=== PATIENT | male | born 1955 ===

== ENCOUNTER 2023-12-04 12:11 | Outpatient (CLI) | payer OTHER, SELFPAY ==
--- NOTE | 2023-12-04 11:45 | DI.RAD_ITS ---
Exam(s) XR KNEE LT 3V AP,LAT,LISETTE EXAM: XR KNEE LT 3V AP,LAT,LISETTE CLINICAL HISTORY: left knee pain. TECHNIQUE: 2D digital imaging was performed of the left knee. Three images were obtained. AP, late ral and PA tunnel views were obtained. COMPARISON: CR TIBIA FIBULA 2 VIEWS from 09/15/2023 FINDINGS: BONES: No acute fracture is present. No bony destructive lesion is seen. There is an old curvilinear density again seen adjacent to the medial femoral condyle likely reflecting old injury. JOINTS: The knee is normally aligned. No joint effusion is seen. No loose body. SOFT TISSUE: Vascular calcifications are present. IMPRESSION: No acute abnormality. If there is concern for internal derangement, an MRI should be considered for further evaluation. DATA REPOSITORY: RADIATION DOSE DELIVERED:
== END 2023-12-04 12:12 | disposition home or self-care (01) ==
LOC: DIORS 12:11
PROVIDERS: Visit Provider Physician Assistant
DX: M25.562 Pain in left knee (principal)
CPT/HCPCS: 73562

== ENCOUNTER 2023-12-22 02:27 | Outpatient (CLI) | payer OTHER, SELFPAY ==
--- NOTE | 2023-12-22 07:36 | DI.MRI_ITS ---
Exam(s) MR LOWER JOINT LT WO EXAM: MR LOWER JOINT LT WO CLINICAL HISTORY: lt knee pain, ? bakers cyst or synovial cyst,M71.210,M71.22,[id number]. TECHNIQUE: Multiplanar multisequence MRI was performed. COMPARISON: CR XR KNEE LT 3V AP,LAT,LISETTE from 12/04/2023 FINDINGS: BONES: No acute fractures identified. Mild marrow edema seen in the subchondral bone in the medial t ibial plateau without evidence of a fracture. JOINTS: Mild chondromalacia is seen in the mid patellar cartilage with mild subchondral edema. There is a small amount of fluid in the joint space. TENDONS: Extensor mechanism: Unremarkable. Medial retinaculum: Unremarkable. Lateral retinaculum: Unremarkable. Popliteus: Unremarkable. MUSCLES: Unremarkable. MENISCI: There is a tear of the posterior horn of the medial meniscus. The lateral meniscus is unrem arkable. SOFT TISSUES: There is a small popliteal cyst. There is edema seen in the soft tissues posteriorly. There is a fluid collection associated with the semi tendinosis tendon. It begins above the level o f the knee joint. The tendon is intact. LIGAMENTS: Anterior Cruciate: Unremarkable. Posterior Cruciate: Unremarkable. Medial Collateral:Unremarkable. Lateral Collateral: Unremarkable. OTHER: IMPRESSION: 1. Tear of the posterior horn of the medial meniscus. 2. No evidence of a ligament tear. 3. Fluid collection associated with the semitendinosus tendon. Differential considerations include t enosynovitis, ganglion cyst or bursitis. The tendon is intact. DATA REPOSITORY:
== END 2023-12-22 02:47 ==
LOC: DI 02:31
PROVIDERS: Visit Provider Student in an Organized Health Care Education/Training Program
DX: M25.562 Pain in left knee (principal); M71.22 Synovial cyst of popliteal space [Baker], left knee; S83.242A Other tear of medial meniscus, current injury, left knee, initial encounter
CPT/HCPCS: 73721

== ENCOUNTER 2024-02-18 12:31 | Day surgery (SDC) | payer OTHER, SELFPAY ==
[2024-02-18] VITALS (22 sets, daily range): BP systolic 65–154; BP diastolic 40–99; PULSE 71–109; RESP 13–22; TEMP 36.4–36.7; O2SAT 93–99; BMI 28.0
[2024-02-18] MEDS: Lactated Ringers 1,000 ML 80 ML IV (14:00)
[2024-02-18] MEDS: Acetaminophen 500 MG TAB 1000 MG PO (14:23)
--- NOTE | 2024-02-18 14:24 | NUR.NOTE ---
Nursing Note:1423 Patient refused celebrex due to allergy - reports GI bleed.
--- NOTE | 2024-02-18 14:33 | PDOC.DSDIS_ITS ---
Date of service: 02/18/24 Time of Service: 14:33 Discharge Plan Disposition Patient Disposition: Home Condition: Good Discharge Details Reason For Visit: L knee arthroscopy Attending Provider: Chilo Fuentes Primary Care Provider: JULIA RUIZ Home Meds and New Rx's Prescriptions: New hydrocodone-acetaminophen 5-325 mg tablet 1 tab PO Q6H PRN (Reason: pain) Qty: 6 0RF acetaminophen 500 mg tablet 1,000 mg PO TID Qty: 90 0RF Continued alirocumab 150 mg/mL pen injector 300 mg subcut Q14D candesartan 16 mg tablet 16 mg PO DAILY clopidogrel 75 mg tablet 75 mg PO DAILY duloxetine 30 mg capsule,delayed release(DR/EC) 60 mg PO DAILY lamotrigine 200 mg tablet 200 mg PO BID metoprolol tartrate 50 mg tablet 50 mg PO BID primidone 50 mg tablet 50 mg PO .COMPLEX Rx Instructions: 50 mg orally EVERY MORNING AND 2 TABLETS at BEDTIME; spironolactone 25 mg tablet 25 mg PO DAILY tadalafil 5 mg tablet 5 mg PO DAILY thiamine HCl (vitamin B1) 100 mg tablet 100 mg PO DAILY naltrexone 50 mg tablet 50 mg PO DAILY nicotine 14 mg/24 hr patch 24 hour 1 patch transdermal DAILY paroxetine HCl 12.5 mg tablet extended release 24 hr 12.5 mg PO DAILY tamsulosin 0.4 mg capsule 0.4 mg PO DAILY Discharge Instructions Stand Alone Forms: [facility] Knee Arthroscopy Referrals: Chilo Fuentes MD [ [facility] STAFF PHYSICIAN] - Equipment/Supplies: Partial Weight Bearing Crutches Activity:: Activity as Tolerated Remove Dressings/Wound Care:: 72 hours Shower/Bathe:: 72 hours Diet:: As Tolerated Discharge Orders Discharge Orders: Discharge Order (Routine); Ordered 02/18/24 Ordered By: Fabiano Braun DS: Diagnosis Discharge Diagnosis (1) Tear of medial meniscus of left knee: Status: Acute
--- NOTE | 2024-02-18 14:47 | W.ANESPRE ---
General Info Date of Service Date Performed: 02/18/24 Height: 5 ft 10 in Weight: 88.5 kg Body Mass Index (BMI): 28.0 Surgical Procedure: Operation Date: 02/18/24 15:10 Proposed Procedure Side Surgeon p Knee Arthroscopy with Partial Medial Menisectomy Left Chilo Fuentes MD Pre-Op Diagnosis Post-Op Diagnosis (1) Synovial cyst of popliteal space [Koenig], left knee (2) Tear of medial meniscus of left knee Meds Allergies and Home Medications Allergies Allergy/AdvReac Type Severity Reaction Status Date / Time atorvastatin Allergy Unknown stomach Verified 02/18/24 14:16 bleeds celecoxib (From Celebrex) Allergy Unknown GI bleeds Verified 02/18/24 14:16 lisinopril Allergy Unknown Per pt. Verified 02/18/24 14:16 stats i get a blood line from my chin to my ear pravastatin Allergy Unknown stomach Verified 02/18/24 14:16 bleeds simvastatin Allergy Unknown stomach Verified 02/18/24 14:16 bleeds codeine AdvReac Unknown bleeding Verified 02/18/24 14:16 ulcers gabapentin AdvReac Unknown Per pt. Verified 02/18/24 14:16 states slips me right out attitude-locke, i go off t Home Medication ?Medication ?Instructions ?Recorded alirocumab 150 mg/mL subcutaneous 300 mg subcut Q14D 11/12/23 pen injector candesartan 16 mg tablet 16 mg PO DAILY 11/12/23 clopidogrel 75 mg tablet 75 mg PO DAILY 11/12/23 duloxetine 30 mg capsule,delayed 60 mg PO DAILY 11/12/23 release lamotrigine 200 mg tablet 200 mg PO BID 11/12/23 metoprolol tartrate 50 mg tablet 50 mg PO BID 11/12/23 naltrexone 50 mg tablet 50 mg PO DAILY 11/12/23 nicotine 14 mg/24 hr daily 1 patch transdermal DAILY 11/12/23 transdermal patch paroxetine HCl 12.5 mg 12.5 mg PO DAILY 11/12/23 tablet,extended release 24 hr primidone 50 mg tablet 50 mg PO .COMPLEX 11/12/23 spironolactone 25 mg tablet 25 mg PO DAILY 11/12/23 tadalafil 5 mg tablet 5 mg PO DAILY 11/12/23 tamsulosin 0.4 mg capsule 0.4 mg PO DAILY 11/12/23 thiamine HCl (vitamin B1) 100 mg 100 mg PO DAILY 11/12/23 tablet acetaminophen 500 mg tablet 1,000 mg (2 x 500 mg) PO TID #90 02/18/24 tabs hydrocodone 5 mg-acetaminophen 325 1 tab PO Q6H PRN pain #6 tabs 02/18/24 mg tablet Current Visit Medications: Current Medications Generic Name Dose Route Start Last Admin Trade Name Freq PRN Reason Stop Dose Admin Acetaminophen 1,000 mg 02/18/24 06:00 02/18/24 14:23 Acetaminophen 500 Mg Tab PO 02/18/24 23:59 1,000 mg PREOP MIRI Administration Acetaminophen 650 mg 02/18/24 14:31 Acetaminophen 325 Mg Tab PO 03/19/24 14:30 Q4H PRN PRN Hydrocodone Bitart/Acetaminophen 0 tab 02/18/24 14:31 Hydrocodone 5/Acetaminophen 325 Tab PO 03/19/24 14:30 Q3H PRN PRN Pain Celecoxib 400 mg 02/18/24 06:00 Celecoxib 200 Mg Cap PO 02/18/24 23:59 PREOP MIRI Ringer's Solution 1,000 mls @ 80 mls/hr 02/18/24 06:00 02/18/24 14:00 IV 02/18/24 23:59 80 mls/hr INFUSION MIRI Administration Cefazolin Sodium/Dextrose 2 gm in 50 mls @ 100 mls/hr 02/18/24 06:00 Ancef Duplex IVPB 02/18/24 23:59 PREOP MIRI Tranexamic Acid/Sodium Chloride 1,000 mg in 100 mls @ 600 mls/hr 02/18/24 06:00 IVPB 02/18/24 23:59 PREOP MIRI IV Miscellaneous Supplies 1 each 02/18/24 06:00 Iv Access IV 02/18/24 23:59 DIRECTED MIRI Sodium Chloride 0 ml 02/18/24 06:00 Normal Saline Flush 10 Ml Syr IV 02/18/24 23:59 PRN PRN Sodium Chloride 0 ml 02/18/24 06:00 Normal Saline 10 Ml Vial IJ 02/18/24 23:59 DIRECTED PRN Sterile Water 0 ml 02/18/24 06:00 Water,Injection,Sterile 10 Ml Vial IJ 02/18/24 23:59 DIRECTED PRN PFSH Active Problems Active Problems: Problem Status Onset Code Tear of medial meniscus of left knee Acute S83.242A Synovial cyst of popliteal space [Koenig], left knee Acute M71.22 Medical History Medical History Degenerative cervical spinal stenosis Rotator cuff tear Unable to control anger Emphysema lung History of traumatic brain injury Vitamin B12 deficiency Chronic hyponatremia Syncope Uses emotional support animal PTSD (post-traumatic stress disorder) Per pt. states do not touch his upper body, stand back off to side and call name first, hx of combative wake up and jump up Spondylosis of cervical region without myelopathy or radiculopathy Right hemiplegia CAD (coronary artery disease) Exertional angina Lumbar stenosis Chronic midline back pain AGUSTINA (obstructive sleep apnea) CVA (cerebral vascular accident) x3 (2004) Carotid stenosis Per pt. states US was done 2021 per pt. states he was told it was mild HLD (hyperlipidemia) HTN (hypertension) Medical History Comments:: Per pt. states do not touch his upper body, stand back off to side and call name first, hx of combative wake up and jump up Surgical History Surgical History H/O cardiac catheterization 2016 Tobacco Smoking/Tobacco Use Status: Current every day Tobacco Type: cigarettes Alcohol Alcohol Intake: current Alcohol intake frequency: a few times a week Substance Use Substance use: Never Substance use type: does not use Vital Signs and Lab Results Vital Signs Most Recent Vital Signs in EMR: Most Recent Vital Signs Temp Pulse Resp BP Pulse Ox 36.5 C 109 H 22 154/99 H 96 02/18/24 13:20 02/18/24 13:20 02/18/24 13:20 02/18/24 13:20 02/18/24 13:20 Lab Results Blood Type / Crossmatch: No Data to Display Complete Blood Count: No Data to Display Complete Metabolic Panel: No Data to Display Liver Function Panel: No Data to Display Coagulation Panel: No Data to Display Cardiac Panel: No Data to Display Arterial Blood Gas: No Data to Display Venous Blood Gas: No Data to Display Pancreas Panel: No Data to Display Thyroid Panel: No Data to Display Infectious Disease: No Data to Display Blood Cultures: No Data to Display Toxicology Panel: No Data to Display Anesthesia Assessment and Plan Anesthesia History Personal History: Other Family History: No Family History of Anesthesia Complications Exercise Tolerance Exercise Tolerance: Metabolic Equivalents>4 Pertinent Negatives Pertinent Negatives: No Symptoms of GERD Cardiac & Pulmonary Exam Cardiac Exam: Normal S1/S2 Heart Sounds Pulmonary Exam: Clear Bilateral Breath Sounds (Home Oxygen) Implantable Cardiac Device Does patient have a Pacemaker or an ICD?: No Airway Exam Known Difficult Airway: No Mallampati Class: 2 Mouth Opening: Normal (> 3cm) Thyromental Distance: Greater than 3 cm Facial Hair: Full [place] Neck Range of Motion: Full ROM Neck Circumference: Normal Teeth Condition: Normal Dentition ASA Classification ASA Score: ASA 3 Emergency Case?: No NPO Status NPO Status: NPO Clears >2 hours, Solids >8 hours Anesthesia Plan Resuscitation Status: Full Code Anesthesia Technique: General Anesthesia Airway Planned: LMA Monitors Used: Standard Monitors
--- NOTE | 2024-02-18 14:48 | W.PREOPHP ---
Assessment and Plan Assessment and plan (1) Tear of medial meniscus of left knee: Status: Acute (2) Synovial cyst of popliteal space [Koenig], left knee: Status: Acute Assessment and plan: Left knee arthroscopy with partial medial meniscectomy. Details of surgery were discussed with patient as well pertinent anatomy and risks including but not limited to risk of infection, blood clot, damage to soft tissue/blood vessels/nerves, bleeding and fracture in detail. All questions were answered. History of Present Illness History of Present Illness Chief Complaint: Left knee pain/swelling Narrative: Mohan comes in today for a left knee arthroscopy with partial medial meniscectomy as treatment for his persistent koenig's cyst of the left knee. Please see previous office note for a full history. Ultimately it was determined that the cause of the cyst is likely the medial meniscus tear and athrocopic intervention would take care of both symptoms. He is anxious proceed. Review of Systems Constitutional Constitutional: Denies fever(s) ENT Ears, Nose, Mouth, and Throat: Denies dizziness and Denies sore throat Cardiovascular Cardiovascular: Denies chest pain, Denies palpitations and Denies dyspnea Respiratory Respiratory: Denies cough and Denies dyspnea Gastrointestinal Gastrointestinal: Denies abdominal pain, Denies melena, Denies hematochezia, Denies diarrhea, Denies nausea and Denies vomiting Genitourinary Genitourinary: Denies hematuria and Denies dysuria Neurologic Neurologic: Denies dizziness Endocrine Endocrine: Denies palpitations PFSH All Active Problems Tear of medial meniscus of left knee (Acute) Synovial cyst of popliteal space [Koenig], left knee (Acute) Medical History Degenerative cervical spinal stenosis Rotator cuff tear Unable to control anger Emphysema lung History of traumatic brain injury Vitamin B12 deficiency Chronic hyponatremia Syncope Uses emotional support animal PTSD (post-traumatic stress disorder) Per pt. states do not touch his upper body, stand back off to side and call name first, hx of combative wake up and jump up Spondylosis of cervical region without myelopathy or radiculopathy Right hemiplegia CAD (coronary artery disease) Exertional angina Lumbar stenosis Chronic midline back pain AGUSTINA (obstructive sleep apnea) CVA (cerebral vascular accident) x3 (2004) Carotid stenosis Per pt. states US was done 2021 per pt. states he was told it was mild HLD (hyperlipidemia) HTN (hypertension) Surgical History H/O cardiac catheterization 2015 Social History Smoking/Tobacco Use Status: Current every day Tobacco Type: cigarettes Smoking risk assessment performed?: Yes Alcohol Intake: current Alcohol Intake frequency: a few times a week Drug use: Never Substance use type: does not use Housing: house Do you feel safe at home: Yes Do you feel safe in your relationship?: Yes Meds Allergies and Home Medications Allergies Allergy/AdvReac Type Severity Reaction Status Date / Time atorvastatin Allergy Unknown stomach Verified 02/18/24 14:16 bleeds celecoxib (From Celebrex) Allergy Unknown GI bleeds Verified 02/18/24 14:16 lisinopril Allergy Unknown Per pt. Verified 02/18/24 14:16 stats i get a blood line from my chin to my ear pravastatin Allergy Unknown stomach Verified 02/18/24 14:16 bleeds simvastatin Allergy Unknown stomach Verified 02/18/24 14:16 bleeds codeine AdvReac Unknown bleeding Verified 02/18/24 14:16 ulcers gabapentin AdvReac Unknown Per pt. Verified 02/18/24 14:16 states slips me right out attitude-locke, i go off t Home Medications ?Medication ?Instructions ?Recorded ?Confirmed ?Type alirocumab 150 mg/mL subcutaneous 300 mg subcut Q14D 11/12/23 02/18/24 History pen injector candesartan 16 mg tablet 16 mg PO DAILY 11/12/23 02/18/24 History clopidogrel 75 mg tablet 75 mg PO DAILY 11/12/23 02/18/24 History duloxetine 30 mg capsule,delayed 60 mg PO DAILY 11/12/23 02/18/24 History release lamotrigine 200 mg tablet 200 mg PO BID 11/12/23 02/18/24 History metoprolol tartrate 50 mg tablet 50 mg PO BID 11/12/23 02/18/24 History naltrexone 50 mg tablet 50 mg PO DAILY 11/12/23 02/18/24 History nicotine 14 mg/24 hr daily 1 patch transdermal DAILY 11/12/23 02/18/24 History transdermal patch paroxetine HCl 12.5 mg 12.5 mg PO DAILY 11/12/23 02/18/24 History tablet,extended release 24 hr primidone 50 mg tablet 50 mg PO .COMPLEX 11/12/23 02/18/24 History spironolactone 25 mg tablet 25 mg PO DAILY 11/12/23 02/18/24 History tadalafil 5 mg tablet 5 mg PO DAILY 11/12/23 02/18/24 History tamsulosin 0.4 mg capsule 0.4 mg PO DAILY 11/12/23 02/18/24 History thiamine HCl (vitamin B1) 100 mg 100 mg PO DAILY 11/12/23 02/18/24 History tablet acetaminophen 500 mg tablet 1,000 mg (2 x 500 mg) PO TID #90 02/18/24 Rx tabs hydrocodone 5 mg-acetaminophen 325 1 tab PO Q6H PRN pain #6 tabs 02/18/24 Rx mg tablet Exam Const General: cooperative, healthy appearing and no acute distress Orientation: alert and awake HENWY Head: normocephalic and atraumatic General nose exam: no nasal discharge Eyes Conjunctivae: conjunctivae normal Sclera: sclerae normal Resp Effort & Inspection: normal respiratory effort Auscultation: clear to auscultation bilaterally and no wheezes Cardio Rate: regular rate Rhythm: regular rhythm Heart Sounds: S1 normal, S2 normal and no murmurs Results Last Vital Signs Temp 97.7 F 02/18/24 13:20 Pulse 109 H 02/18/24 13:20 Resp 22 02/18/24 13:20 BP 154/99 H 02/18/24 13:20 Pulse Ox 96 02/18/24 13:20
[2024-02-18] MEDS: ceFAZolin 2 GM/50 ML BAG IVPB (15:45)
[2024-02-18] MEDS: TRANEXAMIC ACID/SOD. CHL. 1,000 MG/100 ML BAG 600 MG IVPB (15:49)
[2024-02-18] MEDS: EPINEPHrine 10 MG/10 ML ML (16:05)
[2024-02-18] MEDS: Bupivacaine 0.25% Pres-Free 30 ML VIAL (16:08)
--- NOTE | 2024-02-18 16:48 | W.ANESPOSTOP ---
Postoperative Evaluation Date, Time and Location Date Performed: 02/18/24 Time Performed: 16:49 Patient Location: PACU Vital Signs Most Recent Imported Vital Signs: Most Recent Vital Signs Temp Pulse Resp BP Pulse Ox 36.7 C 88 15 116/82 95 02/18/24 16:45 02/18/24 16:45 02/18/24 16:46 02/18/24 16:45 02/18/24 16:46 Pain Score Most Recent Pain Score: Most Recent Pain Score Pain Level 4 02/18/24 16:47 Assessment Mental Status: Awake (Alert & Oriented to Patient Baseline) Airway and Respiratory Function: Patent airway with normal (patient baseline) respiratory exam Cardiovascular Function: Hemodynamically Stable Hydration Status: Adequately Hydrated Nausea & Vomiting: No Nausea or Vomiting Pain: Pain is tolerable per patient Peripheral Nerve Block: Patient did not receive a nerve block
[2024-02-18] MEDS: HYDROcodone 5/Acetaminophen 325 TAB PO (17:06)
--- NOTE | 2024-02-18 21:30 | ROE_ITS ---
Date of service: 02/18/24 Time of Service: 15:30 Operative Note Operative Note DATE OF PROCEDURE: 02/18/24 PRE-OP DIAGNOSIS: Medial Meniscus Tear - left knee POST-OP DIAGNOSIS: same PROCEDURE: Arthroscopic partial medial menisectomy - left knee SURGEON: Chilo Fuentes ANESTHESIA TYPE: General LMA/ETT Refer to Anesthesia Record ESTIMATED BLOOD LOSS: 0 PATHOLOGY: none sent COMPLICATIONS: None Patient was transported to: PACU Patient's condition: stable Indications: I have seen Mohan in clinic for symptoms of a meniscus tear and a popliteal cyst. This was confirmed based on MRI and exam findings. Nonoperative measures were exhausted but disability and pain persisted. I discussed knee arthroscopy with meniscal intervention with the patient. I reviewed the risks of the procedure to include, but not limited to, bleeding, infection, pain, stiffness, damage to nerves or vessels, recurrence, blood clot. Despite these risks, the patient elected to proceed. Findings: A diagnostic arthroscopy was performed with the following findings: Suprapatellar Pouch: Moderate inflammatory change, No loose bodies Medial Compartment: Complex medial meniscal tear with loose and displaced fragments, Intact meniscal root although with some tearing at this level, There were Grade II/III areas of chondromalacia, No loose bodies Notch: ACL and PCL were intact Lateral Compartment: Fraying at the level of the root, Intact meniscal root, Focal area of Grade III chondromalacia in the central portion of the posterior lateral tibia with Grade I changes of the lateral femur, No loose bodies Patellofemoral Compartment: Noderate cartilage fraying, No apparent patellar maltracking Procedure Description: Mohan was greeted in the preoperative holding area where the correct side was identified and marked. The consent was reviewed with the patient and signed. The history and physical was updated. All questions were answered. He was taken back to the operating room. The patient was placed into the supine position on the operating room table. All bony prominences were well padded. Prophylactic antibiotics in the form of Cefazolin were administered. The left leg was then prepped with Chloraprep and draped in a standard fashion with stockinette and extremity drape. A timeout to confirm correct identity, side and site, procedure, allergies, anesthesia, and medical concerns was performed. A standard lateral portal was made at the lateral border of the patella tendon in line with the inferior pole of the patella, soft spot. The skin and deep tissue was incised sharply and the blunt trochar was inserted atraumatically. A diagnostic arthroscopy was performed and the findings are listed above. The suprapatellar pouch had moderate inflammatory changes. The patellofemoral articulation showed grade II chondromalacia as well as good tracking. The lateral gutter had no loose bodies and the medial gutter had no loose bodies. The knee was brought into some valgus stress in extension to open the medial compartment. A medial portal was made, localized by a spinal needle. The portal was created with an #11 blade through skin and capsule under direct visualization avoiding any meniscal injury. A probe was then inserted into the medial compartment. The medial compartment was fully inspected. The chondral surface of the tibia showed Grade II/III chondromalacia and the surface of the femur showed Grade II chondromalacia. The medial meniscus had a complex tear with a displaced fragment into the notch and poserior knee along with a horizontal component towards the posterior horn. After evaluation, the meniscus was debrided down to a stable base using a series of biters and arthroscopic wilmar. It was probed afterwards to confirm that the tear had been removed and the meniscus was stable. The notch was then inspected which showed an intact ACL and an intact PCL. The leg was then brought into a figure of 4 position. The lateral compartment was fully inspected with the arthroscope and a probe. The chondral surface of the lateral femur showed Grade I chondromalacia. The chondral surface of the lateral tibia showed a focal area of Grade III chondromalacia posteriorly, approximately 5-7mm in diameter. The lateral meniscus had no meniscal tear. The arthroscope was brought back into the suprapatellar pouch and the leg was in full extension. The knee was thoroughly irrigated with the arthroscopic fluid o n high flow and pressure. Inflow was stopped and excess fluid was removed. The wounds were closed with 4-0 Nylon. They were dressed with Xeroform, 4x4 gauze, ABD pad, Kerlix and an ARACELIS wrap. A cryo-cuff was applied. The patient tolerated the procedure well and was returned to the PACU area in a stable condition suffering no known complication.
== END 2024-02-18 17:45 | disposition home or self-care (01) ==
PROVIDERS: PCP Internal Medicine; Visit Provider Student in an Organized Health Care Education/Training Program
PROC: (CPT 29870; principal; 2024-02-18 15:00)
DX: M94.262 Chondromalacia, left knee (principal); J43.9 Emphysema, unspecified; I25.10 Atherosclerotic heart disease of native coronary artery without angina pectoris; G47.33 Obstructive sleep apnea (adult) (pediatric); I10 Essential (primary) hypertension; E78.5 Hyperlipidemia, unspecified; S83.242A Other tear of medial meniscus, current injury, left knee, initial encounter; X58.XXXA Exposure to other specified factors, initial encounter
CPT/HCPCS: 29881; J0665; J0690; J1100; J2003; J2371; J2405; J2704